=== PATIENT | female | born 1970 | race African-American/Black ===

== ENCOUNTER 2024-11-09 19:41 | Emergency (ER) | payer OTHER ==
[~2024-11-09] VITALS: Ht 170.2 cm; Wt 89.8 kg
[2024-11-09 19:41] VITALS: BP 138/59
[2024-11-09] MEDS ORDERED: TRAM50TA2 PO (20:17)
[2024-11-09] MEDS ORDERED: TRAMADOL HCL 50 MG TABLET ONE (20:20)
[2024-11-09] MEDS: TRAMADOL HCL 50 MG TABLET PO ONE (20:24)
[2024-11-09 20:42] VITALS: BP 138/59; TEMP 98; O2SAT 98
== END 2024-11-09 20:43 | disposition home or self-care (01) ==
LOC: ER 19:45
DX: S09.8XXA Other specified injuries of head, initial encounter (principal); R51.9 Headache, unspecified; M54.2 Cervicalgia; E78.5 Hyperlipidemia, unspecified; I51.9 Heart disease, unspecified; K21.9 Gastro-esophageal reflux disease without esophagitis; M19.071 Primary osteoarthritis, right ankle and foot; Z88.0 Allergy status to penicillin; Z96.652 Presence of left artificial knee joint; W21.00XA Struck by hit or thrown ball, unspecified type, initial encounter; Y93.89 Activity, other specified; Y92.89 Other specified places as the place of occurrence of the external cause; Y99.8 Other external cause status
CPT/HCPCS: A4606; A4663